=== PATIENT | male | born 1950 | race Hispanic/Latino ===

== ENCOUNTER → 2018-07-20 | Outpatient (CLI) | payer MEDICARE ==
--- NOTE | 2018-07-20 13:03 | Diagnostic Imaging Report ---
EXAMINATION: PA and lateral views of the chest. COMPARISON: None CLINICAL HISTORY: Bronchitis DISCUSSION: The lungs are well-inflated. No focal airspace consolidation, pleural effusion, or pneumothorax. Cardiomediastinal contour and pulmonary vasculature are within normal limits. No acute osseous abnormality. IMPRESSION: No acute cardiopulmonary abnormality. No consolidative pneumonia. Signed by: Dr. Merritt Reynoso M.D. on 07/20/2018 12:59 PM
== END ==
LOC: RAD 12:25
PROVIDERS: ATTEND Family Medicine
DX: J40 Bronchitis, not specified as acute or chronic (principal)
CPT/HCPCS: 71046

== ENCOUNTER → 2019-05-30 | Day surgery (SDC) | payer MEDICARE ==
[2019-05-25 17:13] LABS: BASOPHILS % 0.5 % (0.0-1.0); EOSINOPHILS # (AUTO) 0.1 (0.0-0.4); EOSINOPHILS % 1.6 % (0.0-6.0); HEMATOCRIT 41.8 % (38.2-49.6); HEMOGLOBIN 14.4 g/dL (14.0-18.0); LYMPHOCYTES # (AUTO) 3.2 (1.0-3.2); LYMPHOCYTES % 41.9 % (18.0-39.1); MEAN CORPUSCULAR HEMOGLOBIN 32.2 pg (28-32); MEAN CORPUSCULAR HGB CONC 34.4 g/dL (31-35); MEAN CORPUSCULAR VOLUME 93.5 fL (81-99); MONOCYTES # (AUTO) 0.7 (0.2-0.8); MONOCYTES % 9.3 % (4.4-11.3); NEUTROPHILS # (AUTO) 3.5 (2.1-6.9); NEUTROPHILS % 46.3 % (38.7-80.0); PLATELET COUNT 193 x10e3/uL (140-360); RED BLOOD COUNT 4.47 x10e6/uL (4.3-5.7); RED CELL DISTRIBUTION WIDTH 12.4 % (11.7-14.4)
[~2019-05-30] MED LIST: ASPIR 8181 MG PO; BUPIVACAINE HCL 0.5% 10ML MPF VIAL INJ ONE; FENTANYL CITRATE/PF 100MCG/2 ML INJ ONE; GABAPENTIN300 MG PO; HYDROCHLOROTHIA25 MG PO; IOPAMIDOL 300MG/ML 50ML INFUS..BTL IV ONE; LIDOCAINE HCL 1% LOCAL INJ 20 ML VIAL ONE; LIDOCAINE HCL 2% LOCAL INJ 5 ML SDV VIAL INJ ONE; LIPITOR20 MG PO; LISINOPRIL10 MG PO; LORATADINE10 MG PO; METFORMIN HCL500 MG PO; MIDAZOLAM HCL 2 MG/2 ML VIAL ONE; NOVOLOG100 UNIT/1 SQ; PROPOFOL IV EMULSION 10 MG/ML 20 ML VIAL ONE; REQUIP0.25 MG PEG; SOLIQUA SQ; TRIAMCINOLONE ACET 40 MG/ML VIAL ONE; ULTRACET TABLE1 EACH PO; VIAGRA100 MG PO; VITAMIN B-121000 MCG PO; flonase INH
--- OUTSIDE RECORDS SUMMARY | 2019-05-30 05:15 | XMS REPORT ---
[facility] Address Unknown Phone Unavailable Care Team Providers Care Personnel Worker Name Role Phone RUSSEL HANSON Unavailable Unavailable Problems This patient has no known problems. Allergies, Adverse Reactions, Alerts This patient has no known allergies or adverse reactions. Medications This patient has no known medications. Results Test Description Test Time Test Comments Text Results Atomic Results Result Comments CHEST 2 VIEWS 2018-07-20 12:58:00 [place] [address] Patient Name: AMERICA CUNNINGHAM JR MR #: [id number] : 1950 Age/Sex: 68/M Req #: [id number] Adm Physician: Ordered by: RUSSEL HANSON MD Report #: [id number] Location: [facility] Room/Bed: Procedure: [id number] DX/CHEST 2 VIEWS Exam Date: 07/20/18 Exam Time: 1241 REPORT STATUS: Signed EXAMINATION: PA and lateral views of the chest. COMPARISON: None CLINICAL HISTORY: Bronchitis DISCUSSION: The lungs are well-inflated. No focal airspace consolidation, pleural effusion, or pneumothorax. Cardiomediastinal contour and pulmonary vasculature are within normal limits. No acute osseous abnormality. IMPRESSION: No acute cardiopulmonary abnormality. No consolidative pneumonia. Signed by: Dr. Keli Fabian M.D. on 07/20/2018 12:59 PM Dictated By: KELI FABIAN MD 59 Transcribed By: DORIS on 07/20/181258 COPY TO: RUSSEL HANSON MD
[2019-05-30 07:40] VITALS: BP 189/99
--- NOTE | 2019-05-30 07:50 | Operative Report ---
DATE OF PROCEDURE: 05/30/2019 SURGEON: Merritt Cruz MD PREOPERATIVE DIAGNOSIS: Osteoarthritis, left hip. POSTOPERATIVE DIAGNOSIS: Osteoarthritis, left hip. PROCEDURE: Left hip fluoroscopic-guided corticosteroid injection. INDICATIONS: The patient is a 69-year-old gentleman, who has left groin pain. Clinic exam and x-rays are suggestive of some mild arthritis. The findings and options have been discussed. I am not convinced the symptoms were coming from his hip joint. We have recommended a fluoroscopic guided corticosteroid injection. The risks and benefits were explained. He stated he understood and wished to proceed. PROCEDURE IN DETAIL: The patient was brought to the operating room and given a MAC anesthetic. His left hip was prepped and draped in a sterile manner. A preoperative time-out was performed. A C-arm image intensifier was used to assist in placing an 18-gauge needle into the inferior recess of the left hip joint. A small amount of radiopaque dye was used to confirm intra-articular positioning. A mixture of 9 mL of 0.5% Marcaine and 40 mg of Kenalog were then injected into the hip joint. The needle was retrieved and a Band-Aid was applied. Dilution of the intra-articular dye was noted on the C-arm. The patient was transported to the recovery room in stable condition. There was no blood loss and all needle and sponge counts were correct. Merritt Cruz MD DR/MODL /[id number]
== END | disposition home or self-care (01) ==
LOC: OR 05:12
PROVIDERS: ATTEND Specialist
DX: M16.12 Unilateral primary osteoarthritis, left hip (principal); E11.9 Type 2 diabetes mellitus without complications; K21.9 Gastro-esophageal reflux disease without esophagitis; I10 Essential (primary) hypertension; E78.5 Hyperlipidemia, unspecified; F32.9 Major depressive disorder, single episode, unspecified; F41.9 Anxiety disorder, unspecified; Z79.82 Long term (current) use of aspirin; Z79.4 Long term (current) use of insulin
CPT/HCPCS: 20610; 36415 ×2; 77002; 82948 ×2; 85025; 93005; J2001; J2250; J2704; J3010; J3301; Q9967